=== PATIENT | female | born 1950 | race Caucasian/White ===

== ENCOUNTER → 2018-02-17 | Outpatient (CLI) | payer OTHER ==
[2018-02-17 10:22] LABS: BASOPHILS # (AUTO) 0.1 X10^3/uL (0.0-0.1); BASOPHILS % (AUTO) 0.5 % (0.2-1.0); EOSINOPHILS # (AUTO) 0.4 x10^3/uL (0.0-0.2); EOSINOPHILS % (AUTO) 3.6 % (0.9-2.9); HEMATOCRIT 29.6 % (36.0-47.0); HEMOGLOBIN 9.4 g/dL (12.0-16.0); LYMPHOCYTES # (AUTO) 2.4 X10^3/uL (1.3-2.9); LYMPHOCYTES % (AUTO) 21.8 % (21.0-51.0); MEAN CORPUSCULAR HEMOGLOBIN 22.9 pg (27.0-34.0); MEAN CORPUSCULAR HGB CONC 31.8 g/dL (33.0-35.0); MEAN CORPUSCULAR VOLUME 71.9 fL (80.0-100.0); MEAN PLATELET VOLUME 7.2 fL (7.4-11.0); MONOCYTES # (AUTO) 0.9 x10^3/uL (0.3-0.8); NEUTROPHILS # (AUTO) 7.2 x10^3/uL (2.2-4.8); NEUTROPHILS % (AUTO) 66.1 % (42.0-75.0); PLATELET COUNT 413 X10^3/uL (150.0-450.0); RED BLOOD COUNT 4.12 X10^6/uL (3.5-5.4); RED CELL DISTRIBUTION WIDTH 15.5 % (11.6-16.5); WHITE BLOOD COUNT 10.9 X10^3/uL (3.6-10.0)
[2018-02-17 10:27] LABS: BLOOD UREA NITROGEN 18 mg/dL (7-18); CALCIUM 8.4 mg/dL (8.5-10.1); CARBON DIOXIDE 27.6 mmol/L (21-32); CHLORIDE 104 mmol/L (98-107); SODIUM 139 mmol/L (136-145); eGFR BLACK RACES > 60 (>60); eGFR NON BLACK RACES 58 (>60)
[2018-02-17 10:33] LABS: HYPOCHROMASIA 1+; PLATELET MORPHOLOGY COMMENT NORMAL (NORMAL)
[2018-02-17 10:44] LABS: B-TYPE NATRIURETIC PEPTIDE 22.1 pg/mL (0-79)
--- NOTE | 2018-02-17 15:53 | RAD ---
HISTORY: Dyspnea on exertion Study: PA and lateral views of the chest. Comparison: None. Findings: The cardiomediastinal silhouette is normal. No focal consolidations, pleural effusions or pneumothora x. Osseous structures demonstrate no acute abnormality. IMPRESSION: 1. No acute cardiopulmonary process. Reported By:
== END ==
LOC: LAB 09:59
PROVIDERS: ATTEND Internal Medicine
DX: I25.10 Atherosclerotic heart disease of native coronary artery without angina pectoris (principal); I50.9 Heart failure, unspecified
CPT/HCPCS: 36415; 71046; 80048; 83880; 85025; 93005; 93010

== ENCOUNTER 2019-06-12 15:35 | Observation (INO) ==
[2019-06-12] MEDS ORDERED: ZOFRAN INJ 4 MG VIAL ONE (15:56)
[2019-06-12] MEDS ORDERED: NS 1000 ML 1,000 ML ONE (15:56)
[2019-06-12] MEDS ORDERED: NS 1000 ML 1,000 ML IV ONE (16:04)
[2019-06-12] MEDS ORDERED: ZOFRAN INJ 4 MG VIAL IVP ONE ×2 (16:04→17:31)
[2019-06-12] MEDS ORDERED: CATAPRES TAB 0.2 MG PO ONE (16:23)
--- NOTE | 2019-06-12 16:23 | DR.GENAD ---
HPI - PCP Primary Care Physician: nfd - Complaint/Symptoms Chief Complaint Doctors Comments: Patient is complaining of headache. Spouse says they were cutting grass and she cut for about 1 1/2 -2 hours and told him she could not see and they were leaving and she went to the ground and he could not get her up until friend helped him get her into the truck and they brought her to the emergency room. States she has had decreased appetite and episode of vomiting. She is taking medicines but her do not know the name of the medicines or her doctor's name. States she was going to the doctor that had a heart attack recently. He denies tobacco or alcohol usage.. He denies any recent head trauma but states she has had problems walking for the past week. Patient answers questions at times and states she cannot open her mouth and constantly pulling the cover over herself stating she is cold. Chief Complaint:: pts stated they were cutting grass and he said she got to hot and was acting funny - Nurses notes reviewed Nurses Notes Review: Yes - Source History Provided: Patient - Mode of Arrival Mode of Arrival: Wheelchair - Timing Onset of Chief Complaint: 06/12/19 Came on: Suddenly - Duration Duration: Constant How lon Duration: Hours - Location Location: headache - Severity Severity: Moderate - Modifying Factors Worsens:: nothing Improves:: nothing PMH - PMH Past Medical History: Yes Past Surgical History: Yes Surgical History: Unknown - Family History History of Family Medical Conditions: No - Social History Does patient currently use any type of tobacco product: No Have you used tobacco products in the last 12 months: No Type of Tobacco Use: None Does any household member use tobacco: No Alcohol Use: None Do you use any recreational Drugs:: No Lives With: Family Lives Where: Home - infectious screening In the last 2 months have you had wt loss of >10#?: NO Have you had fever, night sweats or hemotysis?: No Have you traveled outside the country in the last 6 months?: No Isolation: Standard ROS - Review of Systems Constitutional: No Symptoms Reported, Weakness, Loss of Appetite Eyes: No Symptoms Reported, Blurred Vision ENTM: No Symptoms Reported Respiratoy: No Symptoms Reported. negative: See HPI, Productive Cough, Non- Productive Cough, Moist Cough, Dry Cough, Hacking Cough, Barking Cough, Brassy Cough, Orthopnea, Short of Breath, Stridor, Wheezing, Hemoptysis, Other Cardiovascular: No Symptoms Reported Gastrointestinal/Abdominal: No Symptoms Reported, Vomiting Genitourinary: No Symptoms Reported. negative: See HPI, Discharge, Dysuria, Frequency, Hematuria, Pain, Bleeding, Other Neurological: No Symptoms Reported, Headache, Weakness, Problems Walking Musculoskeletal: No Symptoms Reported Integumentary: No Symptoms Reported Hematologic/Lymphatic: No Symptoms Reported. negative: See HPI, Anemia, Blood Clots, Easy Bleeding, Easy Bruising, Swollen Glands, Lymphadenopathy, Other Endocrine: No Symptoms Reported Psychiatric: No Symptoms Reported PE - General Limitations: Altered Mental Status General Appearance: Lethargic, In Distress (moderate) - Head Head Exam: Normal Inspection, Atraumatic, Normocephalic - Eyes Eye exam: Normal Appearance, PERRL, EOMI. negative: Scleral Icterus, Conjunctival Injection, Nystagmus, Miosis, Mydrasis, Periorbital Swelling, P eriorbital Tenderness, Other - ENT ENT Exam: Normal Exam, Normal Oropharynx, Normal External Ear Exam, Mucous Membranes Moist, TM's Normal Bilaterally External Ear Exam: Normal External Inspection TM/Canal Exam: Bilateral Normal Nose Exam: Normal Nose Exam Mouth Exam: Normal Inspection. negative: Drooling, Trismus, Lip Swelling, Tongue Elevation, Tongue Swelling (multiple dental caries), Laceration, Other Throat Exam: Normal Inspection - Neck Neck Exam: Normal Inspection, Full ROM, Trachea Midline - Chest Chest Inspection: Normal Inspection, Symmetric Chest Wall Rise - Respiratory Respiratory Exam: Normal Lung Sounds Bilat Respiratory Exam: Bilateral Clear to Auscultation - Cardiovascular Cardiovascular Exam: Regular Rate, Normal Rhythm, Normal Heart Sounds, Systolic Murmur - Abdominal Exam Abdominal Exam: Normal Inspection, Normal Bowel Sounds, Soft, Tenderness (LUQ tenderness), Dimnished Bowel Sounds Abdominal Tenderness: LUQ, Moderate - Extremities Extremities Exam: Normal Inspection, Full ROM, Normal Capillary Refill. negative: Tenderness, Edema, Joint Swelling, Calf Tenderness, Other - Back Back Exam: Normal Inspection, Full ROM. negative: Tenderness, (R) CVA Tenderness, (L) CVA Tenderness, Muscle Spasm, Paraspinal Tenderness, Vertebral Tenderness, Rashes, (R) Sciatic Notch Tenderness, (L) Sciatic Notch Tendern, (R) Straight Leg Raise, (L) Straight Leg Raise, Other - Neurologic Neurological Exam: Alert, CN II-XII Intact, Reflexes Normal. negative: Oriented X3 (patient answers questions intermittently), Normal Gait (gait not tested) - Psychiatric Psychiatric Exam: Normal Affect, Normal Mood - Skin Skin Exam: Warm, Dry, Intact, Normal Color. negative: Rash, Cyanosis, Diaphoresis, Erythema, Pallor, Mottled, Other - Vital Signs Vitals: Temperature 99.9 F Pulse Rate 89 Respiratory Rate 18 Blood Pressure [Left Arm] 181/109 Blood Pressure 201/102 O2 Sat by Pulse Oximetry 100 Course - Reevaluation 1st: Improved - Consultation Called: 17:38 Call Returned: 17:38 (Dr. Castaneda to admit) - Education/Counseling Education/Counseling: Patient, Family Educated On: Treatment, Diagnosis, Needs for Follow Up ROR - Labs Reviewed Laboratory Results Reviewed?: Yes (All labs and x-ray results reviewed and discussed with patient) Result Diagrams: 06/12/19 16:10 06/12/19 16:10 - XRAY XRAY Interpreted by: Radiologist (CT head: No acute intracranial pathology/) XRAY Findings: CT abdomen and pelvis: No CT evidence of acute abdominal/pelvic pathology. - EKG Rate: 83 Rhythm: NSR Block: None Hypertrophy: None ST: Normal, Nonsp - Labs Reviewed Laboratory: WBC 14.0 X10^3/uL (3.6-10.0) H 06/12/19 16:10 RBC 4.41 X10^6/uL (3.5-5.4) 06/12/19 16:10 Hgb 10.1 g/dL (12.0-16.0) L 06/12/19 16:10 Hct 32.0 % (36.0-47.0) L 06/12/19 16:10 MCV 72.4 fL (80.0-100.0) L 06/12/19 16:10 MCH 22.9 pg (27.0-34.0) L 06/12/19 16:10 MCHC 31.6 g/dL (33.0-35.0) L 06/12/19 16:10 RDW 16.9 % (11.6-16.5) H 06/12/19 16:10 Plt Count 448 X10^3/uL (150.0-450.0) 06/12/19 16:10 Plt Count Comment Adequate (ADEQUATE) 06/12/19 16:10 MPV 7.5 fL (7.4-11.0) 06/12/19 16:10 Neut % (Auto) 79.8 % (42.0-75.0) H 06/12/19 16:10 Lymph % (Auto) 12.0 % (21.0-51.0) L 06/12/19 16:10 [place] % (Auto) 7.1 % (0.0-13.0) 06/12/19 16:10 Eos % (Auto) 0.6 % (0.9-2.9) L 06/12/19 16:10 Baso % (Auto) 0.5 % (0.2-1.0) 06/12/19 16:10 Neut # (Auto) 11.2 x10^3/uL (2.2-4.8) H 06/12/19 16:10 Lymph # (Auto) 1.7 X10^3/uL (1.3-2.9) 06/12/19 16:10 [place] # (Auto) 1.0 x10^3/uL (0.3-0.8) H 06/12/19 16:10 Eos # (Auto) 0.1 x10^3/uL (0.0-0.2) 06/12/19 16:10 Baso # (Auto) 0.1 X10^3/uL (0.0-0.1) 06/12/19 16:10 Absolute Nucleated RBC 0.0 /100WBC 06/12/19 16:10 Plt Morphology Comment Normal (NORMAL) 06/12/19 16:10 RBC Morphology Abnormal (NORMAL) A 06/12/19 16:10 Hypochromasia 1+ A 06/12/19 16:10 Anisocytosis Slight A 06/12/19 16:10 Microcytosis Slight A 06/12/19 16:10 PT 13.0 SECONDS (11.8-14.3) 06/12/19 16:10 INR Target Range - 06/12/19 16:10 INR 1.02 (0.8-1.3) 06/12/19 16:10 APTT 25.2 SECONDS (22.9-36.5) 06/12/19 16:10 PTT Comment - 06/12/19 16:10 Sodium 142 mmol/L (136-145) 06/12/19 16:10 Corrected Sodium TNP 06/12/19 16:10 Potassium 3.1 mmol/L (3.5-5.1) L 06/12/19 16:10 Chloride 102 mmol/L (98-107) 06/12/19 16:10 Carbon Dioxide 25.9 mmol/L (21-32) 06/12/19 16:10 BUN 21 mg/dL (7-18) H 06/12/19 16:10 Creatinine 1.13 mg/dL (0.55-1.02) H 06/12/19 16:10 Est GFR (MDRD) Af Amer > 60 (>60) 06/12/19 16:10 Est GFR (MDRD) Non-Af 51 (>60) L 06/12/19 16:10 Glucose 97 mg/dL (65-99) 06/12/19 16:10 Calcium 9.9 mg/dL (8.5-10.1) 06/12/19 16:10 Corrected Calcium TNP 06/12/19 16:10 Magnesium 1.7 mg/dL (1.7-2.9) 06/12/19 16:10 Total Bilirubin 0.20 mg/dL (0.2-1.0) 06/12/19 16:10 AST 15 Units/L (15-37) 06/12/19 16:10 ALT 16 Units/L (12-78) 06/12/19 16:10 Alkaline Phosphatase 145 Units/L (46-116) H 06/12/19 16:10 Creatine Kinase 116 Units/L (26-192) 06/12/19 16:10 CK-MB (CK-2) < 1.0 ng/mL (0-4.0) 06/12/19 16:10 CK/CKMB % Calc 0.9 % (<4) 06/12/19 16:10 Troponin I < 0.02 ng/mL (0-1.5) 06/12/19 16:10 Total Protein 8.4 g/dL (6.4-8.2) H 06/12/19 16:10 Albumin 3.9 g/dL (3.4-5.0) 06/12/19 16:10 Globulin 4.5 g/dL (2.5-4.5) 06/12/19 16:10 Albumin/Globulin Ratio 0.9 Ratio (1.1-2.1) L 06/12/19 16:10 Amylase 35 Units/L (25-115) 06/12/19 16:10 Lipase 92 Units/L (73-393) 06/12/19 16:10 Opioid - Opioid Risk Tool Total: 0 Total Score Risk Category: Low Risk - Diagnosis Discharge Problem: Acute alteration in mental status, Accelerated hypertension, Hiatal hernia, Hypokalemia Headache Qualifiers: Headache chronicity pattern: unspecified pattern Abdominal pain Qualifiers: Abdominal location: generalized Qualified Code(s): R10.84 - Generalized abdominal pain - Discharge Plan Disposition: ADMITTED INPATIENT Condition: Stable - Follow ups/Referrals Follow ups/Referrals: Kody ALEX [Primary Care Provider] - 3 days - Instructions
[2019-06-12 16:36] LABS: BASOPHILS # (AUTO) 0.1 X10^3/uL (0.0-0.1); BASOPHILS % (AUTO) 0.5 % (0.2-1.0); EOSINOPHILS # (AUTO) 0.1 x10^3/uL (0.0-0.2); EOSINOPHILS % (AUTO) 0.6 % (0.9-2.9); HEMOGLOBIN 10.1 g/dL (12.0-16.0); LYMPHOCYTES # (AUTO) 1.7 X10^3/uL (1.3-2.9); MEAN CORPUSCULAR HEMOGLOBIN 22.9 pg (27.0-34.0); MEAN CORPUSCULAR HGB CONC 31.6 g/dL (33.0-35.0); MEAN CORPUSCULAR VOLUME 72.4 fL (80.0-100.0); MEAN PLATELET VOLUME 7.5 fL (7.4-11.0); MONOCYTES % (AUTO) 7.1 % (0.0-13.0); NEUTROPHILS # (AUTO) 11.2 x10^3/uL (2.2-4.8); NEUTROPHILS % (AUTO) 79.8 % (42.0-75.0); PLATELET COUNT 448 X10^3/uL (150.0-450.0); RED BLOOD COUNT 4.41 X10^6/uL (3.5-5.4); RED CELL DISTRIBUTION WIDTH 16.9 % (11.6-16.5)
[2019-06-12 16:39] LABS: ANISOCYTOSIS SLIGHT; HYPOCHROMASIA 1+; MICROCYTOSIS SLIGHT; PLATELET MORPHOLOGY COMMENT NORMAL (NORMAL)
[2019-06-12 16:50] LABS: AMYLASE 35 Units/L (25-115); LIPASE 92 Units/L (73-393)
--- NOTE | 2019-06-12 16:50 | RAD ---
Examination: AP chest History: Chest pain Comparison 02/17/2018 Findings: Continued normal heart size, essentially clear lungs. Hiatal hernia is observed. Impression: No change; no acute findings. Hiatal hernia. Reported By:
--- NOTE | 2019-06-12 16:51 | CT ---
HISTORY: Altered mental status. Study: CT brain without contrast Comparison: None. Technique: Multiple axial images of the brain were obtained from the skull base to the vertex without administration of IV contrast. Dose reduction techniques including Automated Exposure Control (AEC) and adjustment of mA and kV were utilized. Findings: Age-related cortical atrophy and chronic small vessel ischemic changes. No acute intraparenchymal hemorrhage or mass can be identified. No extra-axial fluid collections are seen. No alteration in the attenuation of the brain parenchyma can be identified to suggest acute or subacute ischemic change. The ventricular system is symmetric and nondilated. The extracranial structures are grossly unremarkable. IMPRESSION: No acute intracranial pathology. If clinically concerned for acute ischemia/infarction, MRI of the brain is more sensitive. Reported By:
[2019-06-12] MEDS ORDERED: CATAPRES TAB 0.2 MG ONE (16:54)
--- NOTE | 2019-06-12 16:58 | CT ---
HISTORY: Hypogastric pain. Study: CT abdomen and pelvis without contrast Comparison: None. Technique: Multiple axial images of the abdomen and pelvis were obtained from the lung bases to the pubic symphysis without the administration of IV contrast. Dose reduction techniques including Automated Exposure Control (AEC) and adjustment of mA and kV were utilized. Limited study secondary to lack of IV and oral contrast. Findings: The visualized portions of the lung bases are unremarkable. Large hiatal hernia. The liver, spleen, pancreas, kidneys, and adrenal glands are unremarkable in their CT appearance. The gallbladder is surgically absent. No significant mesenteric lymphadenopathy or stranding can be observed. No free fluid or free air is seen within the abdomen. Limited evaluation of the large and small bowel secondary to lack of oral contrast and collapse. Scattered colonic diverticula without evidence of diverticulitis. Remaining large and small bowel appear normal. The appendix is not well seen, but no secondary signs to suggest acute appendicitis. The uterus is surgically absent. No suspicious adnexal lesions. The urinary bladder is grossly unremarkable. Degenerative changes of the spine. No aggressive osseous lesions. IMPRESSION: 1. No CT evidence of acute abdominal/pelvic pathology. 2. Other chronic findings as above. Reported By:
[2019-06-12 17:08] LABS: ALANINE AMINOTRANSFERASE 16 Units/L (12-78); ALBUMIN 3.9 g/dL (3.4-5.0); ALKALINE PHOSPHATASE 145 Units/L (46-116); ASPARTATE AMINO TRANSFERASE 15 Units/L (15-37); BLOOD UREA NITROGEN 21 mg/dL (7-18); CALCIUM 9.9 mg/dL (8.5-10.1); CARBON DIOXIDE 25.9 mmol/L (21-32); CHLORIDE 102 mmol/L (98-107); CKMB % 0.9 % (<4); CREATINE KINASE 116 Units/L (26-192); CREATINE KINASE MB < 1.0 ng/mL (0-4.0); CREATININE 1.13 mg/dL (0.55-1.02); MAGNESIUM 1.7 mg/dL (1.7-2.9); SODIUM 142 mmol/L (136-145); TOTAL PROTEIN 8.4 g/dL (6.4-8.2); TROPONIN I < 0.02 ng/mL (0-1.5); eGFR NON BLACK RACES 51 (>60)
[2019-06-12] MEDS ORDERED: NORMODYNE INJ 20 MG VIAL IVP ONE (17:36)
[2019-06-12] MEDS ORDERED: NORMODYNE INJ 100 MG VIAL ONE (17:39)
[2019-06-12] MEDS ORDERED: CATAPRES-TTS-2 TD SCH (18:00)
[2019-06-12 18:05] LABS: CHOL/HDL RATIO 3.7 (0.0-5.0)
[2019-06-12 18:11] LABS: APPEARANCE,URINE CLEAR (CLEAR); COLOR,URINE ORANGE (YELLOW)
[2019-06-12 18:12] LABS: BACTERIA,URINE NEGATIVE /HPF (NEGATIVE); HYALINE CASTS, URINE RARE /LPF (NEGATIVE); MUCUS,URINE FEW /HPF (NEGATIVE); SQUAMOUS EPITHELIAL CELL,UR NEGATIVE /HPF (NEGATIVE)
[2019-06-12] MEDS ORDERED: POTASSIUM CHLORIDE LIQ 20 MEQ UDC PO PRN (19:12)
[2019-06-12] MEDS ORDERED: POTASSIUM CHL 60 MEQ/NS 0.45% 500 ML IV PRN (19:12)
[2019-06-12] MEDS ORDERED: POTASSIUM CHL 40 MEQ/NS 0.45% 500 ML IV PRN (19:12)
[2019-06-12] MEDS ORDERED: K-DUR TAB 20 MEQ PO PRN (19:12)
[2019-06-12] MEDS ORDERED: MICRO K EXTEN CAP 10 MEQ PO PRN (19:12)
[2019-06-12] MEDS ORDERED: K-RIDER 10 MEQ/NS 100 ML 10 MEQ/100 ML BAG IV PRN (19:12)
[2019-06-12] MEDS ORDERED: KLOR-CON PO PRN (19:12)
[2019-06-12] MEDS: NS 1/2 + KCL 20 MEQ/L 1,000 ML IV SCH (19:15)
[2019-06-12] MEDS: MAGNESIUM SULFATE 1 GRAM/100 mL PREMIX 1 GM/100 ML BAG IV PRN ×2 (21:30→22:52)
[2019-06-13] MEDS: NS 1/2 + KCL 20 MEQ/L 1,000 ML IV SCH ×4 (05:27→18:09)
[2019-06-13 05:40] LABS: BASOPHILS % (AUTO) 0.3 % (0.2-1.0); EOSINOPHILS % (AUTO) 0.3 % (0.9-2.9); LYMPHOCYTES # (AUTO) 2.1 X10^3/uL (1.3-2.9); LYMPHOCYTES % (AUTO) 17.6 % (21.0-51.0); MEAN CORPUSCULAR HEMOGLOBIN 23.3 pg (27.0-34.0); MEAN CORPUSCULAR HGB CONC 32.1 g/dL (33.0-35.0); MEAN CORPUSCULAR VOLUME 72.5 fL (80.0-100.0); MEAN PLATELET VOLUME 7.9 fL (7.4-11.0); MONOCYTES # (AUTO) 0.9 x10^3/uL (0.3-0.8); MONOCYTES % (AUTO) 7.4 % (0.0-13.0); NEUTROPHILS # (AUTO) 9.1 x10^3/uL (2.2-4.8); NEUTROPHILS % (AUTO) 74.4 % (42.0-75.0); PLATELET COUNT 377 X10^3/uL (150.0-450.0); RED BLOOD COUNT 3.86 X10^6/uL (3.5-5.4); RED CELL DISTRIBUTION WIDTH 16.8 % (11.6-16.5); WHITE BLOOD COUNT 12.2 X10^3/uL (3.6-10.0)
[2019-06-13 05:43] VITALS: BMI 19.8
[2019-06-13 05:50] LABS: ALANINE AMINOTRANSFERASE 13 Units/L (12-78); ALBUMIN 3.1 g/dL (3.4-5.0); ALKALINE PHOSPHATASE 121 Units/L (46-116); ASPARTATE AMINO TRANSFERASE 12 Units/L (15-37); BLOOD UREA NITROGEN 15 mg/dL (7-18); CALCIUM 8.3 mg/dL (8.5-10.1); CARBON DIOXIDE 24.8 mmol/L (21-32); CHLORIDE 101 mmol/L (98-107); COR NA(FOR HYPERGLY) 135 mmol/L (136-145); CREATININE 0.84 mg/dL (0.55-1.02); SODIUM 135 mmol/L (136-145); TOTAL PROTEIN 7.2 g/dL (6.4-8.2); eGFR NON BLACK RACES > 60 (>60)
[2019-06-13 06:10] LABS: ANISOCYTOSIS SLIGHT; HYPOCHROMASIA 1+; PLATELET MORPHOLOGY COMMENT NORMAL (NORMAL)
[2019-06-13] MEDS ORDERED: TYLENOL 325 MG TAB PO PRN (06:54)
[2019-06-13] MEDS ORDERED: TYLENOL 325 MG TAB PO ONE (06:56)
[2019-06-13] MEDS ORDERED: ROCEPHIN VIAL 1 GRAM IVP SCH (09:00)
--- NOTE | 2019-06-13 17:05 | CT ---
HISTORY: Follow-up Study: CT brain without contrast Comparison: 06/12/2019 Technique: Multiple axial images of the brain were obtained from the skull base to the vertex without administration of IV contrast. Findings: No acute intraparenchymal hemorrhage or mass can be identified. No extra-axial fluid collections are seen. No alteration in the attenuation of the brain parenchyma can be identified to suggest acute or subacute ischemic change. The ventricular system is symmetric and nondilated. The extracranial structures are grossly unremarkable. IMPRESSION: 1. No acute intracranial process can be identified. Reported By:
--- NOTE | 2019-06-13 22:29 | DR.H&P ---
H&P - History & Physical for Day of: H&P Date: 06/12/19 - Chief Complaint Chief Complaint: HEADACHE, SYNCOPE, AMS, WEAKNESS, SLURRED SPEECH, UNSTEADY GAIT - History of Present Illness History of Present Illness: IS A 68 YEAR OLD WHITE FEMALE WHO PRESENTED TO THE ER WITH REPORTS OF HEADACHE AND SYNCOPE. SHE ALSO REPORTS AN EPISODE OF VOMITING. SPOUSE REPORTS THAT SHE RECENTLY HAD A LIGHT HEART ATTACK. HE DENIES ANY PATIENT RECENT HEAD TRAUMA, BUT REPORTS THAT SHE HAS BEEN WEAK AND HAD UNSTEADY GAIT FOR THE PAST WEEK. HE REPORTS THAT SHE HAS HAD SLURRED SPEECH AT TIMES. ON ARRIVAL TO THE ER, SHE IS NOTED TO BE LETHARGIC. VITALS WERE 99.9-89-18-100%-201/102. LABS WERE OBTAINED. ABNORMAL LAB VALUES INCLUDE THE FOLLOWING: WBC 14.0, HGB 10.1, HCT 32.0, POTASSIUM 3.1, BUN 21, CREATININE 1.13, ALK PHOS 145, TOTAL PROTEIN 8.4. A URINALYSIS WAS OBTAINED AND REVEALED: RBC 5- 10, WBC 5-10. A CULTURE WAS SET UP. A CHEST XRAY WAS OBTAINED AND REVEALED: NO ACUTE FINDINGS. HIATAL HERNIA. A BRAIN CT WAS OBTAINED AND REVEALED: No acute intracranial pathology. If clinically concerned for acute ischemia/infarction, MRI of the brain is more sensitive. AN ABDOMEN/PELVIS CT WAS OBTAINED AND REVEALED: HIATAL HERNIA, OTHERWISE, NO CT EVIDENCE OF ACUTE ABDOMINAL/PELVIC PATHOLOGY. SHE WAS GIVEN LABETALOL 10MG IV X 1, ZOFRAN 4MG IV X 2 DOSES, CATAPRES 0.2MG PO X 1, AND A NORMAL SALINE BOLUS. BLOOD PRESSURE DECREASED TO 150/67. SHE WAS ADMITTED FOR FURTHER EVALUATION OF AMS, RULE OUT CVA, ACCELERATED HTN, SYNCOPE, AND A URINARY TRACT INFECTION. SHE WAS STARTED ON NS WITH 20MEK KCL AT 125ML/HR, ROCEPHIN 1G IV DAILY, CATAPRES 2 MG PATCH, AND THE POTASSIUM PROTOCOL. WE PLAN TO REPEAT BRAIN CT IN THE MORNING. OTHERWISE, WE WILL FOLLOW UP WITH AM LABS AND CONTINUE TO MONITOR. - Past Surgical History Surgical History: Hysterectomy - Family History Family Medical History: VA, Coronary Artery Disease - Social History Does patient currently use any type of tobacco product: No Have you used tobacco products in the last 12 months: No Type of Tobacco Use: None Does any household member use tobacco: No Alcohol Use: None Drug Use: None Prescription drug monitoring program results: PDMP was not reviewed - Medications Home Medications: No Known Drug Allergies Allergy (Verified 06/12/19 15:37) CONTINUE taking the following medications NK 06/13/19 [History] - Review of Systems Constitutional: See HPI, Weakness, Other (UNSTEADY GAIT ) Eyes: No Symptoms Reported ENT: No Symptoms Reported Respiratory: No Symptoms Reported Cardiovascular: Light Headedness Gastrointestinal: Vomiting Genitourinary: No Symptoms Reported Musculoskeletal: No Symptoms Reported Skin: No Symptoms Reported Neurological: See HPI, Weakness, Change in Speech, Confusion, Other (SYNCOPE ) - Physical Exam Vital Signs: Temperature 98.1 F Pulse Rate 70 Respiratory Rate 22 Blood Pressure [Left Arm] 181/109 Blood Pressure 136/51 O2 Sat by Pulse Oximetry 98 Oriented: Not Oriented Eyes: Blurred Vision Ear: Normal Nose: Normal Throat: Normal Respiratory: Diminished Throughout Cardiovascular: Normal. negative: S3, S4, Edema : Normal Auscultation: Bowel Sounds: Normal Palpation: Normal Tenderness: Suprapubic, Mild. negative: Rebound, Guarding, Rigidity Skin: Decreased [place] Musculoskeletal: Instability Psychiatric: Other (LETHARGIC ) Mood Description: Flat Affect: Flat Speech Pattern: Inappropriate, Slurred - Assessment/Plan (1) Urinary tract infection Qualifiers: Urinary tract infection type: acute cystitis Hematuria presence: without hematuria Qualified Code(s): N30.00 - Acute cystitis without hematuria Status: Acute Plan: ADMIT, NS WITH 20MEK KCL AT 125ML/HR, ROCEPHIN 1G IV DAILY, CONTINUE TO MONITOR (2) Syncope Qualifiers: Syncope type: unspecified Qualified Code(s): R55 - Syncope and collapse Status: Acute Plan: REPEAT BRAIN CT IN AM (3) Acute alteration in mental status Status: Acute Plan: REPEAT BRAIN CT IN AM (4) Accelerated hypertension Status: Acute Plan: CATAPRES PATCH, CONTINUE TO MONITOR (5) Hypokalemia Status: Acute Plan: NS WITH 20MEK KCL AT 125ML/HR - Allergies Allergies/Adverse Reactions: Allergies Allergy/AdvReac Type Severity Reaction Status Date / Time No Known Drug Allergies Allergy Verified 06/12/19 15:37
[2019-06-14 06:12] LABS: BASOPHILS # (AUTO) 0.1 X10^3/uL (0.0-0.1); EOSINOPHILS # (AUTO) 0.2 x10^3/uL (0.0-0.2); EOSINOPHILS % (AUTO) 1.8 % (0.9-2.9); HEMATOCRIT 30.1 % (36.0-47.0); HEMOGLOBIN 9.7 g/dL (12.0-16.0); LYMPHOCYTES # (AUTO) 2.1 X10^3/uL (1.3-2.9); LYMPHOCYTES % (AUTO) 23.8 % (21.0-51.0); MEAN CORPUSCULAR HEMOGLOBIN 23.6 pg (27.0-34.0); MEAN CORPUSCULAR HGB CONC 32.2 g/dL (33.0-35.0); MEAN CORPUSCULAR VOLUME 73.3 fL (80.0-100.0); MEAN PLATELET VOLUME 7.5 fL (7.4-11.0); MONOCYTES # (AUTO) 0.7 x10^3/uL (0.3-0.8); MONOCYTES % (AUTO) 8.1 % (0.0-13.0); NEUTROPHILS # (AUTO) 5.8 x10^3/uL (2.2-4.8); NEUTROPHILS % (AUTO) 65.3 % (42.0-75.0); PLATELET COUNT 362 X10^3/uL (150.0-450.0); RED BLOOD COUNT 4.11 X10^6/uL (3.5-5.4); RED CELL DISTRIBUTION WIDTH 16.8 % (11.6-16.5); WHITE BLOOD COUNT 8.9 X10^3/uL (3.6-10.0)
[2019-06-14 06:33] LABS: ALANINE AMINOTRANSFERASE 12 Units/L (12-78); ALBUMIN 3.4 g/dL (3.4-5.0); ALKALINE PHOSPHATASE 127 Units/L (46-116); ASPARTATE AMINO TRANSFERASE 18 Units/L (15-37); BLOOD UREA NITROGEN 14 mg/dL (7-18); CALCIUM 8.8 mg/dL (8.5-10.1); CARBON DIOXIDE 23.6 mmol/L (21-32); CHLORIDE 103 mmol/L (98-107); CREATININE 0.84 mg/dL (0.55-1.02); SODIUM 138 mmol/L (136-145); TOTAL PROTEIN 7.6 g/dL (6.4-8.2); eGFR NON BLACK RACES > 60 (>60)
[2019-06-14 07:00] LABS: PLATELET MORPHOLOGY COMMENT NORMAL (NORMAL)
[2019-06-14 07:01] LABS: HYPOCHROMASIA SLIGHT
[2019-06-14] MEDS: NS 1/2 + KCL 20 MEQ/L 1,000 ML IV SCH ×2 (07:54→10:42)
[2019-06-14] MEDS ORDERED: MILK OF MAGNESIA PO SCH (09:00)
[2019-06-14] MEDS ORDERED: COLACE CAP 100 MG PO SCH (09:00)
[2019-06-14] MEDS ORDERED: ROCEPHIN VIAL 1 GRAM IM SCH (09:15)
[2019-06-14] MEDS ORDERED: XYLOCAINE 1 % (PLAIN) ONE (09:45)
[2019-06-14 12:17] VITALS: BP 155/67
--- NOTE | 2019-06-14 21:18 | PCM.PROG ---
Progress Note - Progress Note for Day of Date of Exam: 06/13/19 - Subjective Subjective: WAS ADMITTED FOR ALTERED MENTAL STATUS, RULE OUT CVA, ACCELERATED HTN, SYNCOPE, AND URINARY TRACT INFECTION. TODAY, SHE IS ALERT AND ORIENTED, LYING IN BED ON MORNING ROUNDS. SHE CONTINUES WITH COMPLAINTS OF WEAKNESS AND HEADACHE. ON EXAMINATION, HEART IS REGULAR IN RATE AND RHYTHM. BILATERAL LUNGS ARE NOTED WITH DIMINISHED LUNG SOUNDS THROUGHOUT. ABDOMEN IS FLAT, SOFT, AND NON-TENDER WITH NORMAL BOWEL SOUNDS NOTED IN ALL QUADRANTS. HER VITALS THIS MORNING ARE: 99.0-66-16-98%-158/71. LABS WERE OBTAINED. ABNORMAL LAB VALUES INCLUDE THE FOLLOWING: WBC 12.2, HGB 9.0, HCT 28.0, SODIUM 135, GLUCOSE 114, CALCIUM 8.3, AST 12, ALK PHOS 121, ALBUMIN 3.1. URINE CULTURE IS PENDING. SHE IS CURRENTLY RECEIVING ROCEPHIN 1G IV DAILY, CATAPRES PATCH, AND 1/2NS WITH 20MEQ KCL. WE WILL CONTINUE WITH CURRENT PLAN OF CARE TODAY AND REPEAT A BRAIN CT. OTHERWISE, WE WILL FOLLOW UP WITH AM LABS AND CONTINUE TO MONITOR. - Past Medical Family Social History Past Med/Fam/Surg Hx: No changes since H&P Allergies: Allergies No Known Drug Allergies Allergy (Verified 06/12/19 15:37) - Review of Systems ROS: No change since H&P - Vital Signs and I&O's Vital Signs: Temperature 98.1 F Pulse Rate 67 Respiratory Rate 24 Blood Pressure [Left Arm] 181/109 Blood Pressure 155/67 O2 Sat by Pulse Oximetry 99 Intake and Output: Intake & Output 06/12/19 06/13/19 06/14/19 06/15/19 11:59 11:59 11:59 11:59 Intake Total 1620 / 1620 3570 / 3570 Output Total 900 / 900 1200 / 1200 Balance 720 / 720 2370 / 2370 - Physical Exam Oriented: Normal Eyes: Blurred Vision Ear: Normal Nose: Normal Throat: Normal Respiratory: Diminished Cardiovascular: Normal. negative: S3, S4, Edema : Normal Auscultation: Bowel Sounds: Normal Palpation: Normal Tenderness: Suprapubic, Mild. negative: Rebound, Guarding, Rigidity Skin: Decreased [place] Musculoskeletal: Instability Psychiatric: Other (LETHARGIC ) Mood Description: Calm Affect: Flat Speech Pattern: Appropriate - Laboratory and Diagnostics Result Diagrams: 06/14/19 05:25 06/14/19 05:25 Labs: 06/12/19 17:55 Urine,Catheterized Urine Culture - Final Laboratory WBC 8.9 X10^3/uL (3.6-10.0) 06/14/19 05:25 RBC 4.11 X10^6/uL (3.5-5.4) 06/14/19 05:25 Hgb 9.7 g/dL (12.0-16.0) L 06/14/19 05:25 Hct 30.1 % (36.0-47.0) L 06/14/19 05:25 MCV 73.3 fL (80.0-100.0) L 06/14/19 05:25 MCH 23.6 pg (27.0-34.0) L 06/14/19 05:25 MCHC 32.2 g/dL (33.0-35.0) L 06/14/19 05:25 RDW 16.8 % (11.6-16.5) H 06/14/19 05:25 Plt Count 362 X10^3/uL (150.0-450.0) 06/14/19 05:25 Plt Count Comment Adequate (ADEQUATE) 06/14/19 05:25 MPV 7.5 fL (7.4-11.0) 06/14/19 05:25 Neut % (Auto) 65.3 % (42.0-75.0) 06/14/19 05:25 Lymph % (Auto) 23.8 % (21.0-51.0) 06/14/19 05:25 [place] % (Auto) 8.1 % (0.0-13.0) 06/14/19 05:25 Eos % (Auto) 1.8 % (0.9-2.9) 06/14/19 05:25 Baso % (Auto) 1.0 % (0.2-1.0) 06/14/19 05:25 Neut # (Auto) 5.8 x10^3/uL (2.2-4.8) H 06/14/19 05:25 Lymph # (Auto) 2.1 X10^3/uL (1.3-2.9) 06/14/19 05:25 [place] # (Auto) 0.7 x10^3/uL (0.3-0.8) 06/14/19 05:25 Eos # (Auto) 0.2 x10^3/uL (0.0-0.2) 06/14/19 05:25 Baso # (Auto) 0.1 X10^3/uL (0.0-0.1) 06/14/19 05:25 Absolute Nucleated RBC 0.1 /100WBC 06/14/19 05:25 Plt Morphology Comment Normal (NORMAL) 06/14/19 05:25 RBC Morphology Abnormal (NORMAL) A 06/14/19 05:25 Hypochromasia Slight A 06/14/19 05:25 Anisocytosis Slight A 06/13/19 04:31 Microcytosis Slight A 06/12/19 16:10 PT 13.0 SECONDS (11.8-14.3) 06/12/19 16:10 INR Target Range - 06/12/19 16:10 INR 1.02 (0.8-1.3) 06/12/19 16:10 APTT 25.2 SECONDS (22.9-36.5) 06/12/19 16:10 PTT Comment - 06/12/19 16:10 Fibrinogen 418 mg/dL (239-489) 06/12/19 16:10 Sodium 138 mmol/L (136-145) 06/14/19 05:25 Corrected Sodium TNP 06/14/19 05:25 Potassium 4.4 mmol/L (3.5-5.1) 06/14/19 05:25 Chloride 103 mmol/L (98-107) 06/14/19 05:25 Carbon Dioxide 23.6 mmol/L (21-32) 06/14/19 05:25 BUN 14 mg/dL (7-18) 06/14/19 05:25 Creatinine 0.84 mg/dL (0.55-1.02) 06/14/19 05:25 Est GFR (MDRD) Af Amer > 60 (>60) 06/14/19 05:25 Est GFR (MDRD) Non-Af > 60 (>60) 06/14/19 05:25 Glucose 98 mg/dL (65-99) 06/14/19 05:25 Calcium 8.8 mg/dL (8.5-10.1) 06/14/19 05:25 Corrected Calcium TNP 06/14/19 05:25 Magnesium 2.4 mg/dL (1.7-2.9) 06/13/19 04:31 Total Bilirubin 0.20 mg/dL (0.2-1.0) 06/14/19 05:25 AST 18 Units/L (15-37) 06/14/19 05:25 ALT 12 Units/L (12-78) 06/14/19 05:25 Alkaline Phosphatase 127 Units/L (46-116) H 06/14/19 05:25 Creatine Kinase 116 Units/L (26-192) 06/12/19 16:10 CK-MB (CK-2) < 1.0 ng/mL (0-4.0) 06/12/19 16:10 CK/CKMB % Calc 0.9 % (<4) 06/12/19 16:10 Troponin I < 0.02 ng/mL (0-1.5) 06/12/19 16:10 Total Protein 7.6 g/dL (6.4-8.2) 06/14/19 05:25 Albumin 3.4 g/dL (3.4-5.0) 06/14/19 05:25 Globulin 4.2 g/dL (2.5-4.5) 06/14/19 05:25 Albumin/Globulin Ratio 0.8 Ratio (1.1-2.1) L 06/14/19 05:25 Triglycerides 139 mg/dL (0-150) 06/12/19 16:10 Cholesterol 152 mg/dL (0-200) 06/12/19 16:10 LDL Cholesterol, Calc 83 mg/dL (0-100) 06/12/19 16:10 HDL Cholesterol 41 mg/dL (40-60) 06/12/19 16:10 Cholesterol/HDL Ratio 3.7 (0.0-5.0) 06/12/19 16:10 Amylase 35 Units/L (25-115) 06/12/19 16:10 Lipase 92 Units/L (73-393) 06/12/19 16:10 Specimen Type Catherized urine 06/12/19 17:55 Urine Color [place] (YELLOW) 06/12/19 17:55 Urine Appearance Clear (CLEAR) 06/12/19 17:55 Urine pH Cancelled 06/12/19 17:55 Ur Specific [place] Cancelled 06/12/19 17:55 Urine Protein Cancelled 06/12/19 17:55 Urine Glucose (UA) Cancelled 06/12/19 17:55 Urine Ketones Cancelled 06/12/19 17:55 Urine Occult Blood Cancelled 06/12/19 17:55 Urine Nitrite Cancelled 06/12/19 17:55 Urine Bilirubin Cancelled 06/12/19 17:55 Urine Urobilinogen Cancelled 06/12/19 17:55 Ur Leukocyte Esterase Cancelled 06/12/19 17:55 Urine RBC 5-10 /HPF (0-3) A 06/12/19 17:55 Urine WBC 5-10 /HPF (0-5) A 06/12/19 17:55 Ur Squamous Epith Cells Negative /HPF (NEGATIVE) 06/12/19 17:55 Urine Bacteria Negative /HPF (NEGATIVE) 06/12/19 17:55 Hyaline Casts Rare /LPF (NEGATIVE) 06/12/19 17:55 Urine Mucus Few /HPF (NEGATIVE) 06/12/19 17:55 Ur Culture Indicated? Yes/culture set up 06/12/19 17:55 - Plan (1) Urinary tract infection Status: Acute Qualifiers: Urinary tract infection type: acute cystitis Hematuria presence: without hematuria Qualified Code(s): N30.00 - Acute cystitis without hematuria Plan: NS WITH 20MEK KCL AT 125ML/HR, ROCEPHIN 1G IV DAILY, CONTINUE TO MONITOR (2) Syncope Status: Acute Qualifiers: Syncope type: unspecified Qualified Code(s): R55 - Syncope and collapse Plan: REPEAT BRAIN CT (3) Acute alteration in mental status Status: Acute Plan: REPEAT BRAIN CT (4) Accelerated hypertension Status: Acute Plan: CATAPRES PATCH, CONTINUE TO MONITOR (5) Hypokalemia Status: Acute Plan: NS WITH 20MEK KCL AT 125ML/HR
== END 2019-06-14 12:40 | disposition home or self-care (01) ==
LOC: ICU 15:36 → ER 15:36 → ICU 18:27
PROVIDERS: ADMIT Internal Medicine; ATTEND Internal Medicine
DX: R26.89 Other abnormalities of gait and mobility; K44.9 Diaphragmatic hernia without obstruction or gangrene; E87.6 Hypokalemia; N30.00 Acute cystitis without hematuria; R10.84 Generalized abdominal pain; R55 Syncope and collapse; R47.81 Slurred speech; R51 Headache; R41.82 Altered mental status, unspecified
CPT/HCPCS: 36415; 51702; 70450; 71010; 71045; 74176; 80053; 80061; 81015; 82150; 82550; 82553; 83690; 83735; 84484; 85025; 85384; 85610; 85730; 87086; 93005; 96365; 96367; 96374; 96375; 99284; A4222; J7030; G0378; J0696; J2405; J3475; J3490